=== PATIENT | female | born 1995 | race Caucasian/White ===

== ENCOUNTER 2021-08-08 13:44 | Emergency (ER) | payer OTHER ==
[~2021-08-08] VITALS: Ht 162.6 cm; Wt 90.9 kg
[2021-08-08 14:15] VITALS: BP 107/66; TEMP 98.4
[2021-08-08 16:29] VITALS: PULSE 62
== END 2021-08-08 16:29 | disposition left against medical advice (07) ==
LOC: COL.ER 13:44
DX: S30.1XXA Contusion of abdominal wall, initial encounter (principal); S20.312A Abrasion of left front wall of thorax, initial encounter; V43.53XA Car driver injured in collision with pick-up truck in traffic accident, initial encounter